=== PATIENT | male | born 1955 | race Caucasian/White ===

== ENCOUNTER 2022-08-10 03:25 | Emergency (ER) | payer MEDICARE, MEDICAID ==
[~2022-08-10] VITALS: Ht 180.3 cm; Wt 99.8 kg
[2022-08-10 03:30] VITALS: BP 130/74; PULSE 82; RESP 16; TEMP 97.7; O2SAT 97
--- NOTE | 2022-08-10 04:41 | NUR ---
Patient discharged with v/s stable. Written and verbal after care instructions given and explained. Patient verbalized understanding. Police with in custody. All questions addressed prior to discharge. Advised to follow up with PMD.
== END 2022-08-10 04:41 | disposition home or self-care (01) ==
LOC: MED 03:25
DX: M25.511 Pain in right shoulder (principal); M25.512 Pain in left shoulder; Z02.89 Encounter for other administrative examinations; V89.2XXA Person injured in unspecified motor-vehicle accident, traffic, initial encounter; Y93.89 Activity, other specified; Y92.89 Other specified places as the place of occurrence of the external cause; Y99.8 Other external cause status
CPT/HCPCS: 99283